=== PATIENT | female | born 1995 | race African-American/Black ===

== ENCOUNTER 2021-02-02 05:15 | Emergency (ER) | payer MEDICAID, OTHER ==
[~2021-02-02] VITALS: Ht 170.2 cm; Wt 65.0 kg
[2021-02-02 06:35] LABS: BASOPHILS % 0.8 % (0.0-2.0); EOSINOPHILS % 8.2 % (0.0-5.0); HEMATOCRIT. 39.1 % (36.0-48.0); LYMPHOCYTES % 33.4 % (20.0-50.0); MEAN CORPUSCULAR HEMOGLOBIN 27.2 pg (28.0-32.0); MEAN CORPUSCULAR VOLUME 81.7 fL (81.0-99.0); MEAN PLATELET VOLUME 8.9 fl (7.4-10.4); MONOCYTES % 8.8 % (2.0-8.0); NEUTROPHILS % 48.8 % (40.0-76.0); PLATELET 246 x1000/uL (130-400); RED BLOOD CELL COUNT 4.79 mill/uL (4.2-5.4); RED CELL DISTRIBUTION WIDTH 13.8 % (11.6-14.6)
[2021-02-02 06:42] LABS: CHLORIDE 109 mEq/L (98-107)
[2021-02-02] MEDS ORDERED: ALBUTEROL (0.083%) 2.5MG/3ML NEB HHN ONE (06:45)
[2021-02-02] MEDS ORDERED: ALBU6.7H9 INH (11:29)
[2021-02-02 11:49] VITALS: BP 120/80
== END 2021-02-02 11:51 | disposition home or self-care (01) ==
LOC: ER 05:15
DX: R06.00 Dyspnea, unspecified (principal); R06.02 Shortness of breath; R07.89 Other chest pain; F12.10 Cannabis abuse, uncomplicated
CPT/HCPCS: 36415; 71045; 80053; 83880; 84484; 85025; 93005; 94640; 99285; Z7610